=== PATIENT | male | born 1995 ===

== ENCOUNTER 2017-04-09 21:46 | Outpatient (CLI) | payer OTHER | END 2017-04-09 21:47 | disposition home or self-care (01) | LOC: SC 21:46 | PROVIDERS: ATTEND Internal Medicine Pulmonary Disease | DX: G47.61 Periodic limb movement disorder (principal); R06.83 Snoring | CPT/HCPCS: 95810 ==

== ENCOUNTER 2017-05-05 09:04 | Outpatient (CLI) | payer OTHER | END 2017-05-05 09:05 | disposition home or self-care (01) | LOC: SC 09:04 | PROVIDERS: ATTEND Nurse Practitioner Family | DX: G47.8 Other sleep disorders (principal); G47.61 Periodic limb movement disorder | CPT/HCPCS: 99212; 99214 ==

== ENCOUNTER 2017-10-28 14:44 | Outpatient (CLI) | payer OTHER ==
--- NOTE | 2017-10-28 16:29 | MRI Report ---
Reason: CHRONIC INSTABILITY OF KNEE, PAIN IN KNEE Procedure Date: 10/28/2017 Accession Number: [id number] / [id number] Procedure: MRI - Knee RT W/O CPT Code: FULL RESULT: EXAM: RIGHT KNEE MRI WITHOUT CONTRAST EXAM DATE: 10/28/2017 03:31 PM. CLINICAL HISTORY: CHRONIC INSTABILITY OF KNEE, PAIN IN KNEE. COMPARISON: None. TECHNIQUE: Multiplanar, multisequence T1-weighted and fluid-sensitive sequences of the knee without contrast. Other: None. FINDINGS: Cruciate ligaments: The anterior and posterior cruciate ligaments appear intact. Medial meniscus: Intact. No tear is identified. Lateral meniscus: Intact. No tear is identified. Collateral ligaments: The medial and fibular collateral ligaments appear intact. Bones and articular surfaces: No osteochondral lesions. Small amount of cartilage thinning and surface irregularity at the anterolateral periphery of the weightbearing lateral femoral condyle with slight degree of subchondral edema. No additional marrow signal abnormality. No joint effusion. Extensor mechanism: The patellar tendon and quadriceps insertion appear intact. IMPRESSION: 1. Minimal degenerative cartilage changes in the lateral compartment. 2. No evidence of internal derangement. The menisci, cruciate and collateral ligaments appear intact. [facility] MUSCULOSKELETAL RADIOLOGY SECTION
== END 2017-10-28 14:45 | disposition home or self-care (01) ==
LOC: DI 14:44
PROVIDERS: ATTEND Registered Nurse Diabetes Educator
DX: S83.014A Lateral dislocation of right patella, initial encounter (principal); M23.50 Chronic instability of knee, unspecified knee; M25.569 Pain in unspecified knee

== ENCOUNTER 2017-10-29 20:23 | Emergency (ER) | payer OTHER ==
--- NOTE | 2017-10-29 20:32 | ED Physician Documentation ---
PD HPI SYNCOPE - Stated complaint Stated Complaint: SYNCOPE - JAW PAIN - History obtained from History obtained from: Patient - History of Present Illness Witnessed: Unwitnessed Timing - onset: Today Preceding symptoms: None Associated symptoms: Other (head trauma). No: Seizure Injury occurred: Fell, Head injury Similar symptoms before: No diagnosis Recently seen: Clinic - Additional information Additional information: Patient is a 22 year old male with no significant past medical history who is presenting to the emergency department for syncopal episode and fall. Patient reports that he was walking to an office to answer questions when he passed out. Patient fell forward hitting his face. Patient was down for a few seconds. Patient sustained some injuries to his face. patient denies any preceding symptoms. Upon initial evaluation patient is awake, alert and ansy Review of Systems Ten Systems: 10 systems reviewed and negative Skin: reports: Laceration (s) Neurologic: reports: Syncope, Head injury PD PAST MEDICAL HISTORY - Present Medications Home Medications: Ambulatory Orders Medication Instructions Recorded Confirmed No Known Home Medications 10/29/17 10/29/17 - Allergies Allergies/Adverse Reactions: Allergies Allergy/AdvReac Type Severity Reaction Status Date / Time No Known Drug Allergies Allergy Verified 10/29/17 22:03 PD ED PE NORMAL - Vitals Vital signs reviewed: Yes - General General: Alert and oriented X 3, No acute distress - HEENT HEENT: PERRL - Neck Neck: No bony TTP - Cardiac Cardiac: RRR, No murmur - Respiratory Respiratory: No respiratory distress - Abdomen Abdomen: Soft, Non tender - Derm Derm: Normal color, Warm and dry - Extremities Extremities: No deformity - Neuro Neuro: Alert and oriented X 3, 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, No motor deficit, Normal speech Eye Opening: Spontaneous Motor: Obeys Commands Verbal: Oriented GCS Score: 15 - Psych Psych: Normal mood PD ED PE EXPANDED - HEENT HEENT Visual: 1 - deformity (fractured tooth) 2 - laceration (small superficial laceration) Results - Vitals Vitals: Vital Signs - 24 hr 10/29/17 10/29/17 20:30 22:06 Temperature 36.5 C Heart Rate 79 74 Respiratory 20 25 H Rate Blood Pressure 151/86 H 141/89 H O2 Saturation 99 100 Oxygen O2 Source Room air - EKG (time done) 2034 Rate: Rate (enter#) (62) Rhythm: NSR [place]: Normal Intervals: Normal [place] QRS: Normal Ischemia: Normal ST segments - Labs Labs: Laboratory Tests 10/29/17 10/29/17 10/29/17 20:40 20:40 20:40 WBC 6.8 RBC 4.66 L Hgb 14.1 Hct 41.0 L MCV 88.1 MCH 30.3 MCHC 34.4 RDW 13.3 Plt Count 247 MPV 7.3 L Neut # (Auto) 3.6 Lymph # (Auto) 2.4 [place] # (Auto) 0.7 Eos # (Auto) 0.1 Baso # (Auto) 0.0 Absolute Nucleated RBC 0.01 Nucleated RBC % 0.1 Sodium 136 Potassium 3.6 Chloride 101 Carbon Dioxide 27 Anion Gap 8.0 BUN 15 Creatinine 1.1 Estimated GFR (MDRD) 85 L Glucose 109 H Calcium 9.2 Phosphorus 4.0 Magnesium 2.0 Total Bilirubin 0.9 AST 20 ALT 23 Alkaline Phosphatase 49 Troponin I < 0.04 Total Protein 7.6 Albumin 4.6 Globulin 3.0 Albumin/Globulin Ratio 1.5 Lipase 33 Urine Opiates Screen Ur Oxycodone Screen Urine Methadone Screen Ur Propoxyphene Screen Ur Barbiturates Screen Ur Tricyclics Screen Ur Phencyclidine Scrn Ur Amphetamine Screen U Methamphetamines Scrn U Benzodiazepines Scrn Urine Cocaine Screen U Cannabinoids Screen Ethyl Alcohol < 5.0 10/29/17 21:04 WBC RBC Hgb Hct MCV MCH MCHC RDW Plt Count MPV Neut # (Auto) Lymph # (Auto) Canadian # (Auto) Eos # (Auto) Baso # (Auto) Absolute Nucleated RBC Nucleated RBC % Sodium Potassium Chloride Carbon Dioxide Anion Gap BUN Creatinine Estimated GFR (MDRD) Glucose Calcium Phosphorus Magnesium Total Bilirubin AST ALT Alkaline Phosphatase Troponin I Total Protein Albumin Globulin Albumin/Globulin Ratio Lipase Urine Opiates Screen NEGATIVE Ur Oxycodone Screen NEGATIVE Urine Methadone Screen NEGATIVE Ur Propoxyphene Screen NEGATIVE Ur Barbiturates Screen NEGATIVE Ur Tricyclics Screen NEGATIVE Ur Phencyclidine Scrn NEGATIVE Ur Amphetamine Screen NEGATIVE U Methamphetamines Scrn NEGATIVE U Benzodiazepines Scrn NEGATIVE Urine Cocaine Screen NEGATIVE U Cannabinoids Screen NEGATIVE Ethyl Alcohol - Rads (name of study) ct head Radiology: Final report received (no acute abnormalities) facial bones Radiology: Final report received (fracture or front tooth, but no other fractures) PD MEDICAL DECISION MAKING - ED course Complexity details: reviewed old records, reviewed results, re-evaluated patient, considered differential, d/w patient ED course: Patient was seen and examined at bedside. patient was asymptomatic at that time. ekg was performed and was within normal limits. imaging was ordered. While patient had a chipped tooth patient had no other fractures. patient's diagnostics were otherwise within normal limits. According to capay syncope rules patient was low risk. patient was given detailed discharge and follow up instructions and was stable for discharge with outpatient follow up. - Sepsis Event Vital Signs: Vital Signs - 24 hr 10/29/17 10/29/17 20:30 22:06 Temperature 36.5 C Heart Rate 79 74 Respiratory 20 25 H Rate Blood Pressure 151/86 H 141/89 H O2 Saturation 99 100 Oxygen O2 Source Room air Departure - Departure Disposition: 01 Home, Self Care Clinical Impression: Syncope and collapse Condition: Good Instructions: ED Fainting Unkn Cause Follow-Up: Mason Whyte ARNP [Primary Care Provider] - Tomorrow Comments: Your diagnostics today were within normal limits aside from the chipped tooth. You will need to follow up with your doctor in the morning. For the passing out component I would recommend getting an echocardiogram to take a look at your heart. as for your tooth you will need to follow up with the dentist tomorrow. You can take ibuprofen for pain, and an occasional percocet for breakthrough pain. You should return to the emergency department at any time for new, worsening or uncontrollable symptoms. Forms: Activity restrictions Discharge Date/Time: 10/29/17 22:16
[2017-10-29 20:55] LABS: BASOPHILS % (AUTO) 0.6 %; EOSINOPHILS # (AUTO) 0.1 10^3/uL (0.0-0.7); EOSINOPHILS % (AUTO) 1.5 %; HGB - HEMOGLOBIN 14.1 g/dL (14.0-18.0); LYMPHOCYTES # (AUTO) 2.4 10^3/uL (1.5-3.5); LYMPHOCYTES % (AUTO) 34.5 %; MEAN CORPUSCULAR HEMOGLOBIN 30.3 pg (27.0-31.0); MEAN CORPUSCULAR HGB CONC 34.4 g/dL (32.0-36.0); MEAN CORPUSCULAR VOLUME 88.1 fL (80.0-94.0); MEAN PLATELET VOLUME 7.3 fL (7.4-11.4); MONOCYTES # (AUTO) 0.7 10^3/uL (0.0-1.0); MONOCYTES % (AUTO) 10.5 %; NEUTROPHILS # (AUTO) 3.6 10^3/uL (1.5-6.6); NEUTROPHILS % (AUTO) 52.9 %; PLT - PLATELET COUNT 247 10^3/uL (130-450); RED BLOOD COUNT 4.66 10^6/uL (4.70-6.10); RED CELL DISTRIBUTION WIDTH 13.3 % (12.0-15.0); WHITE BLOOD COUNT 6.8 x10^3/uL (4.8-10.8)
[2017-10-29 21:01] LABS: ALBUMIN 4.6 g/dL (3.2-5.5); ALBUMIN/GLOBULIN RATIO 1.5 (1.0-2.2); ALKALINE PHOSPHATASE 49 IU/L (42-121); ALT ALANINE AMINOTRANSFERASE 23 IU/L (10-60); AST ASPARTATE AMINOTRANSFERASE 20 IU/L (10-42); BILIRUBIN,TOTAL 0.9 mg/dL (0.2-1.0); BUN - BLOOD UREA NITROGEN 15 mg/dL (6-20); CALCIUM 9.2 mg/dL (8.5-10.3); CARBON DIOXIDE - CO2 27 mmol/L (21-32); CHLORIDE 101 mmol/L (101-111); CREATININE 1.1 mg/dL (0.6-1.2); GFR - MDRD 85 (>89); GLUCOSE 109 mg/dL (70-100); LIPASE 33 U/L (22-51); SODIUM 136 mmol/L (135-145); TOTAL PROTEIN 7.6 g/dL (6.7-8.2)
[2017-10-29 21:19] LABS: MUDS CUTOFF CONCENTRATIONS CUTOFF CONC BELOW:
--- NOTE | 2017-10-29 21:31 | CT Report ---
Reason: fall, syncope, head trauma Procedure Date: 10/29/2017 Accession Number: [id number] / [id number] Procedure: CT - Head W/O CPT Code: FULL RESULT: EXAM: CT HEAD EXAM DATE: 10/29/2017 08:50 PM. CLINICAL HISTORY: Fall, syncope, head trauma. COMPARISON: None. TECHNIQUE: Multiaxial CT images were obtained from the foramen magnum to the vertex. Reformats: Coronal. IV contrast: None. In accordance with CT protocol optimization, one or more of the following dose reduction techniques were utilized for this exam: automated exposure control, adjustment of mA and/or KV based on patient size, or use of iterative reconstructive technique. FINDINGS: Parenchyma: No intraparenchymal hemorrhage. No evidence of mass, midline shift, or CT findings of infarction. Kolb-white differentiation is distinct. Extraaxial Spaces: Normal for age. No subdural or epidural collections identified. Ventricles: Normal in size and position. Sinuses and Orbits: Imaged paranasal sinuses, orbits, and mastoids show no significant abnormality. Bones: No evidence of fracture or calvarial defect. Other: None. IMPRESSION: Normal head CT. [facility]
[2017-10-29 21:33] LABS: AMPHETAMINE SCREEN,URINE NEGATIVE (NEGATIVE); BENZODIAZEPINES SCREEN, URINE NEGATIVE (NEGATIVE); COCAINE SCREEN URINE NEGATIVE (NEGATIVE); METHADONE SCREEN, URINE NEGATIVE (NEGATIVE); METHAMPHETAMINES SCREEN, URINE NEGATIVE (NEGATIVE); OPIATE SCREEN, URINE NEGATIVE (NEGATIVE); OXYCODONE SCREEN, URINE NEGATIVE (NEGATIVE); PROPOXYPHENE SCREEN, URINE NEGATIVE (NEGATIVE); TRICYCLIC ANTIDEPRESSANT,URINE NEGATIVE (NEGATIVE)
--- NOTE | 2017-10-29 21:37 | CT Report ---
Reason: fall, syncope head trauma Procedure Date: 10/29/2017 Accession Number: [id number] / [id number] Procedure: CT - Facial Bones W/O CPT Code: FULL RESULT: EXAM: CT MAXILLOFACIAL WITHOUT CONTRAST EXAM DATE: 10/29/2017 09:03 PM. CLINICAL HISTORY: Fall, syncope head trauma. Fell face first, bloody mouth and jaw pain COMPARISONS: None. TECHNIQUE: Thin-section axial images were acquired of the face without contrast. Post-processing: Coronal and sagittal reformats. Other: None. In accordance with CT protocol optimization, one or more of the following dose reduction techniques were utilized for this exam: automated exposure control, adjustment of mA and/or KV based on patient size, or use of iterative reconstructive technique. FINDINGS: Soft Tissue: The infratemporal fossa and parapharyngeal spaces are unremarkable. Orbits: Symmetric and unremarkable. Bones: No fracture or bone lesion. Temporomandibular Joints: No dislocation. Sinuses: Normal. No mucosal thickening or fluid levels. Other: Left upper frontal incisor broken tooth. IMPRESSION: No evidence for acute fracture of the facial bones. Left upper frontal incisor broken tooth. [facility]
[2017-10-29] MEDS ORDERED: oxyCODONE/ACET 5/325 Prepack 4 PO STA (21:58)
[2017-10-29 22:08] VITALS: BP 141/89
== END 2017-10-29 22:16 | disposition home or self-care (01) ==
LOC: EDUNIT# → ED 20:23
DX: R55 Syncope and collapse (principal); S02.5XXA Fracture of tooth (traumatic), initial encounter for closed fracture; S01.511A Laceration without foreign body of lip, initial encounter; W18.39XA Other fall on same level, initial encounter; Y93.01 Activity, walking, marching and hiking; Y92.59 Other trade areas as the place of occurrence of the external cause
CPT/HCPCS: 36415; 70450; 70486; 80053; 80306; 80320; 83690; 83735; 84100; 84484; 85025; 93005; 99283; 99284

== ENCOUNTER 2017-11-02 07:43 | Outpatient (CLI) | payer OTHER ==
[2017-11-02] MEDS ORDERED: GADOBUTROL 10 MMOL/10 ML VIAL ONE (07:49)
[2017-11-02] MEDS ORDERED: GADOBUTROL 10 MMOL/10 ML VIAL IVP ONE (08:44)
--- NOTE | 2017-11-03 11:57 | MRI Report ---
Reason: SYNCOPE AND COLLAPSE Procedure Date: 11/02/2017 Accession Number: [id number] / [id number] Procedure: MRI - Brain W/WO CPT Code: FULL RESULT: MRI BRAIN WITHOUT AND WITH CONTRAST INDICATION: 22-year-old male. Loss of consciousness with collapse. Complaints of lapse of memory. TECHNIQUE: 1. T1 sagittal and fat-saturated T2 coronal. 2. Axial T1 MP RAGE, FLAIR, T2, T2* and DWI. 3. 10 cc of IV Gadavist. T1 3D axial. COMPARISON: Head CT 10/29/2017. FINDINGS: Ventricular size is normal. Signal intensity of cortex and white matter appears normal throughout. There appear to be flow voids for the main intracranial arteries. No abnormal diffusion restriction is demonstrated. No evidence of acute or chronic hemorrhage on T2* GRE sequence. No enhancing space-occupying mass lesion is demonstrated. No pathologic meningeal or cranial nerve enhancement is identified. There appears to be normal intravascular contrast enhancement in the dural venous sinuses and deep venous structures. Limited assessment of the orbits reveals no gross pathology. There is mild mucosal thickening scattered throughout the ethmoid air cells. The paranasal sinuses are otherwise clear. No mastoid or middle ear effusion. Marrow signal intensity in the regional skeletal structures is unremarkable. IMPRESSION: Normal brain MRI.
== END 2017-11-02 07:44 | disposition home or self-care (01) ==
LOC: DI 07:43
PROVIDERS: ATTEND Registered Nurse Diabetes Educator
DX: R55 Syncope and collapse (principal)
CPT/HCPCS: 70553; 93306; A9585